=== PATIENT | female | born 1955 | race African-American/Black ===

== ENCOUNTER → 2016-08-30 | Outpatient (CLI) | payer BC | LOC: OD 15:50 | PROVIDERS: ATTEND Nurse Practitioner Psychiatric/Mental Health | DX: R80.9 Proteinuria, unspecified (principal) | CPT/HCPCS: 76770 ==

== ENCOUNTER 2016-09-03 11:41 | Emergency (ER) | payer BC ==
--- NOTE | 2016-09-03 12:48 | ER Document Report ---
ED Blood Pressure Problem - General Chief Complaint: High Blood Pressure Stated Complaint: BLOOD PRESSURE PROBLEMS Time Seen by Provider: 09/03/16 12:30 Notes: The patient is a 61-year-old female, past medical history hypertension, hyperlipidemia, presents from her primary care physician's office after her blood pressure was noted to be 220/140 while in the office today she had a routine visit for follow-up about possible proteinuria. She took her hydrochlorothiazide and atenolol this morning just prior to the visit. She was sent to the emergency room due to elevated blood pressure. She is asymptomatic at this time and her BP is 160's/90's. She denies chest pain, shortness of breath, numbness, tingling, back pain, blurry vision, headache, abdominal pain, nausea, vomiting or difficulty walking. TRAVEL OUTSIDE OF THE [place] IN LAST 30 DAYS: No - Related Data Allergies/Adverse Reactions: No Known Allergies Allergy (Verified 07/18/13 07:50) Home Medications: Current Home Medications Azilsartan Medoxomil [Edarbi] 80 mg PO DAILY 09/03/16 [History] Duloxetine HCl [Cymbalta] 1.5 tab PO TID 09/03/16 [History] Glimepiride [Amaryl 4 mg Tablet] 4 mg PO DAILY 09/03/16 [History] Hydrochlorothiazide 25 mg PO DAILY 09/03/16 [History] Pregabalin [Lyrica 75 mg Capsule] 75 mg PO Q12 09/03/16 [History] Simvastatin 40 mg PO QHS 09/03/16 [History] Tapentadol HCl [Nucynta] 100 mg PO BID 09/03/16 [History] Zolpidem Tartrate [Zolpidem Tartrate ER] 12.5 mg PO QHS 09/03/16 [History] Past Medical History - General Information source: Patient - Social History Smoking Status: Unknown if Ever Smoked Family History: Reviewed & Not Pertinent Patient has suicidal ideation: No Patient has homicidal ideation: No - Past Medical History Cardiac Medical History: Reports: Hx Hypercholesterolemia, Hx Hypertension Endocrine Medical History: Reports: Hx Diabetes Mellitus Type 2 Renal/ Medical History: Denies: Hx Peritoneal Dialysis Past Surgical History: Reports: Hx Vascular Surgery - Immunizations Hx Diphtheria, Pertussis, Tetanus Vaccination: Yes - 2000 Review of Systems - Review of Systems Notes: REVIEW OF SYSTEMS: CONSTITUTIONAL: -fevers, -chills EENT: -eye pain, -difficulty swallowing, -nasal congestion CARDIOVASCULAR:-chest pain, -syncope. RESPIRATORY: -cough, -SOB GASTROINTESTINAL: -abdominal pain, - nausea, -vomiting, -diarrhea GENITOURINARY: -dysuria, -hematuria MUSCULOSKELETAL: -back pain, -neck pain SKIN: -rash or skin lesions. HEMATOLOGIC: -easy bruising or bleeding. LYMPHATIC: -swollen, enlarged glands. NEUROLOGICAL: -altered mental status or loss of consciousness, -headache, - neurologic symptoms PSYCHIATRIC: -anxiety, -depression. ALL OTHER SYSTEMS REVIEWED AND NEGATIVE. Physical Exam - Vital signs Vitals: Temp 97.8 F 09/03/16 12:07 - Notes Notes: PHYSICAL EXAMINATION: GENERAL: Well-appearing, well-nourished and in no acute distress. HEAD: Atraumatic, normocephalic. EYES: Pupils equal round and reactive to light, extraocular movements intact, sclera anicteric, conjunctiva are normal. ENT: nares patent, oropharynx clear without exudates. Moist mucous membranes. NECK: Normal range of motion, supple without lymphadenopathy LUNGS: Breath sounds clear to auscultation bilaterally and equal. No wheezes rales or rhonchi. HEART: Regular rate and rhythm without murmurs ABDOMEN: Soft, nontender, normoactive bowel sounds. No guarding, no rebound. No masses appreciated. EXTREMITIES: Normal range of motion, no pitting or edema. No cyanosis. NEUROLOGICAL: Cranial nerves grossly intact. Normal speech, normal gait. Normal sensory, motor, and reflex exams. PSYCH: Normal mood, normal affect. SKIN: Warm, Dry, normal turgor, no rashes or lesions noted. Course - Re-evaluation Re-evalutation: 09/03/16 12:54: Pt completely asymptomatic at this time. Her blood pressure came down to 160s over 90s after she took her home blood pressure medications. Placed a call to her PMD, Dr. Grove, to discuss if any changes need to be made. Based on ACEP guidelines, asymptomatic hypertension should be treated as an outpatient due to the potential risks of lowering blood pressure too rapidly. Patient and sister understand and will follow up with her primary care physician. 09/03/16 13:[address] Grove about BP readings in ED. she recommends no adjustments at this time. Plan is to have patient referred to nephrology because of difficult to control hypertension. Patient and sister comfortable with plan. - Vital Signs Vital signs: Temp Pulse Resp BP Pulse Ox 97.3 F 72 18 162/96 H 98 09/03/16 13:17 09/03/16 13:17 09/03/16 13:17 09/03/16 13:17 09/03/16 13:17 Discharge - Discharge Clinical Impression: Asymptomatic hypertension Condition: Stable Disposition: HOME, SELF-CARE Additional Instructions: Keep of loss of your blood pressure measurements and follow-up with her primary care physician to see if your blood pressure meds need adjusted. Always take your medications as instructed. HIGH BLOOD PRESSURE REQUIRING TREATMENT: Your blood pressure is high. This is called "hypertension." Today's reading was 169/97 (normal is less than 140/90). Your history and exam suggest that this is not a temporary problem. You need treatment of your blood pressure. If left untreated, high blood pressure greatly increases your risk of heart attack and stroke. Please don't ignore this problem. If you have blood pressure medicine but aren't using it regularly, start taking it again. Some simple things you can do to help are: Get some aerobic exercise for at least 20 minutes on a daily basis. (See your doctor before beginning any new exercise program.) Eat a low-fat diet. Lose excess weight. Avoid salty foods and avoid adding salt to any of the foods you eat. Avoid diet pills, decongestants, "energizing" herbs, and other medicines that elevate blood pressure. There are many different medicines that treat blood pressure. If your medication causes unpleasant side effects, call your doctor. There are others you can try. Treating hypertension is a life-long investment in your health. HYDROCHLOROTHIAZIDE: Hydrochlorothiazide is a diuretic medication. Diuretics are often called "water pills." The medicine flushes excess salt and water from the body. Diuretics are used for fluid retention (such as heart failure, cirrhosis, or lung disease) and for blood pressure control. Often hydrochlorothiazide is combined with other medicines in the same pill. Most patients prefer to take the medicine in the morning. Hydrochlorothiazide makes extra urine, which can be a problem if you take the pill at night. Diuretics make you lose potassium. Sometimes a good diet with plenty of fruit is enough to replace it. Sometimes a potassium supplement is necessary. Or, hydrochlorothiazide may be combined with medicines that prevent potassium loss. We usually recommend a blood potassium test in a few weeks. Contact your doctor if you develop extreme fatigue, muscle weakness, lethargy, confusion, or palpitations. FOLLOW-UP CARE: If you have been referred to a physician for follow-up care, call the physician s office for an appointment as you were instructed or within the next two days. If you experience worsening or a significant change in your symptoms, notify the physician immediately or return to the Emergency Department at any time for re-evaluation.
[2016-09-03 13:25] VITALS: BP 162/96
== END 2016-09-03 13:17 | disposition home or self-care (01) ==
LOC: ER 11:41
DX: I10 Essential (primary) hypertension (principal); Z79.899 Other long term (current) drug therapy; E11.9 Type 2 diabetes mellitus without complications
CPT/HCPCS: 99283

== ENCOUNTER 2018-01-26 15:05 | Emergency (ER) | payer BC ==
--- NOTE | 2018-01-26 18:25 | ER Document Report ---
ED Skin Rash/Insect Bite/Abscs - General Chief Complaint: Skin Sore(s) Stated Complaint: LEFT ELBOW PAIN Time Seen by Provider: 01/26/18 18:19 Information source: Patient Notes: Patient is a 62-year-old female who comes emergency room complaining of an abscess on the back of her left elbow. Patient states it started yesterday as a little pimple she attempted to pop it and today it got much bigger. She says her mother tried to drain it by using herbs. Now it is swollen and warm. Patient denies any known trauma to it knows that it had a pimple type presentation and she attempted to pop it. She also works as a [employer]. He also has a history of hypertension and diabetes. Her diabetes is oral dependent. Currently she states that it is oozing slightly. Denies any fever. TRAVEL OUTSIDE OF THE [place] IN LAST 30 DAYS: No - HPI Patient complains to provider of: Tender/swollen area, Possible insect bite Onset: Yesterday Onset/Duration: Gradual, Constant, Worse Quality of pain: Cramping, Throbbing Severity: Moderate Pain Level: 3 Skin Character: Erythema, Swelling, Tenderness, Thickening, Warm Skin Temperature: Warm Quality of rash: Painful Identify cause: No Exacerbated by: Denies Relieved by: Denies Similar symptoms previously: No Recently seen / treated by doctor: No - Related Data Allergies/Adverse Reactions: No Known Allergies Allergy (Verified 01/26/18 15:07) Past Medical History - General Information source: Patient - Social History Smoking Status: Former Smoker Chew tobacco use (# tins/day): No Smoking Education Provided: No Frequency of alcohol use: Rare Drug Abuse: None Occupation: C[employer] Lives with: Family Family History: Reviewed & Not Pertinent Patient has suicidal ideation: No Patient has homicidal ideation: No - Past Medical History Cardiac Medical History: Reports: Hx Hypercholesterolemia, Hx Hypertension Endocrine Medical History: Reports: Hx Diabetes Mellitus Type 2 Renal/ Medical History: Denies: Hx Peritoneal Dialysis Past Surgical History: Reports: Hx Vascular Surgery - Immunizations Hx Diphtheria, Pertussis, Tetanus Vaccination: Yes - 2000 Review of Systems - Review of Systems Constitutional: No symptoms reported EENT: No symptoms reported Cardiovascular: No symptoms reported Respiratory: No symptoms reported Gastrointestinal: No symptoms reported Genitourinary: No symptoms reported Female Genitourinary: No symptoms reported Musculoskeletal: No symptoms reported Skin: See HPI, Lesions Hematologic/Lymphatic: No symptoms reported Neurological/Psychological: No symptoms reported Physical Exam - Vital signs Vitals: Temp Pulse Resp BP Pulse Ox 98.8 F 79 18 158/78 H 98 01/26/18 15:13 01/26/18 15:13 01/26/18 15:13 01/26/18 15:13 01/26/18 15:13 Interpretation: Hypertensive - Notes Notes: Well-nourished well-developed female no apparent distress - General General appearance: Alert - HEENT Head: Normocephalic, Atraumatic Eyes: Normal - Respiratory Respiratory status: No respiratory distress Chest status: Nontender Breath sounds: Normal. No: Rales, Rhonchi, Stridor, Wheezing Chest palpation: Normal - Cardiovascular Rhythm: Regular Heart sounds: Normal auscultation Murmur: No - Extremities General upper extremity: Tender, Edema, Normal color, Normal strength. No: Normal ROM, Normal temperature General lower extremity: Normal inspection, Nontender, Normal ROM, Normal strength Elbow: Tender, Other - Examination patient's elbow shows her to be moderate amount of erythema noted. There is also an open draining area right at the tip of the elbow. It is only approximately half a centimeter across but it is actively oozing a slight amount of whitish pus. I applied pressure to the area and actually popped a hard firm core out of it. Patient states is very tender to touch. The increased amount of warmth is noted. It extends from the midpoint of the elbow to about 3 inches out on either side. Patient has full range of motion with her arm. Good pulses distally and she got good cap refill in nailbeds of the fingers of the left hand. Forearm: Normal, Nontender Wrist: Normal, Nontender - Neurological Neuro grossly intact: Yes Cognition: Normal Orientation: AAOx4 [place] Coma Scale Eye Opening: Spontaneous [place] Coma Scale Verbal: Oriented [place] Coma Scale Motor: Obeys Commands [place] Coma Scale Total: 15 Speech: Normal Cranial nerves: Normal Course - Re-evaluation Re-evalutation: 01/26/18 18:30 As patient is a [employer] I have informed her that we can try antibiotic therapy at this point. There is nothing for me to incise or drain. The cord that I popped out seems to been the paez behind it. She could use warm moist compresses and applying antibiotic cream to it 3 times a day. I am going to keep her out of work tomorrow since she is a C[employer]IED EX[employer]. I am put her on 2 antibiotics Bactrim and Keflex. She also take Tylenol Motrin for any pain at this time. I have told her she is watched very carefully it is right over the joint space if for any reason she has concerns that is not healing appropriately return to ER for recheck. - Vital Signs Vital signs: Temp Pulse Resp BP Pulse Ox 98.8 F 79 18 158/78 H 98 01/26/18 15:13 01/26/18 15:13 01/26/18 15:13 01/26/18 15:13 01/26/18 15:13 Discharge - Discharge Clinical Impression: Cellulitis of left elbow Condition: Stable Disposition: HOME, SELF-CARE Instructions: Cellulitis ([facility]) Additional Instructions: Home home and rest. Medication as we discussed. And take it all please. Use the warm moist compresses 3 or 4 times a day as we discussed. Do not goes to get in the [facility] anything bathtub while this is has an opening in it. You may take a shower this will not hurt it at all. Should you have any concerns or problems that is not healing appropriately return to ER for recheck. Should you spike a fever and or if get worse return to ER for recheck. Prescriptions: Cephalexin Monohydrate [Keflex 500 mg Capsule] 500 mg PO Q6H 7 Days #28 capsule Fluconazole [Diflucan] 150 mg PO ASDIR #2 tablet Sulfamethoxazole/Trimethoprim [Bactrim Ds Tablet] 1 each PO BID #20 tablet Forms: Return to Work
[2018-01-26 19:09] VITALS: BP 154/87
== END 2018-01-26 18:50 | disposition home or self-care (01) ==
LOC: ER 15:05
DX: L03.114 Cellulitis of left upper limb (principal); E78.00 Pure hypercholesterolemia, unspecified; I10 Essential (primary) hypertension; E11.9 Type 2 diabetes mellitus without complications; Z79.84 Long term (current) use of oral hypoglycemic drugs
CPT/HCPCS: 99283

== ENCOUNTER → 2019-03-26 | Outpatient (CLI) | payer BC | LOC: OD 15:26 | PROVIDERS: ATTEND Internal Medicine Gastroenterology | DX: B19.20 Unspecified viral hepatitis C without hepatic coma (principal) | CPT/HCPCS: 36415; 87522 ==

== ENCOUNTER → 2019-11-05 | Outpatient (CLI) | payer BC ==
--- NOTE | 2019-11-06 10:59 | RADIOLOGY REPORT (SQ) ---
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 Coronal T2/ HASTE imaging. LIMITATIONS: None. FINDINGS: VISUALIZED UPPER ABDOMEN: Limited evaluation. No acute or suspicious findings suggested. SEGMENTATION: No transitional anatomy. The lowest well-developed disc space is labeled L5-S1. ALIGNMENT: Slight anterolisthesis L4 relative to L5. VERTEBRAE: Intact. BONE MARROW: Normal. No marrow replacement or reactive changes. DISC SIGNAL: Desiccation multiple levels. POSTERIOR ELEMENTS: Generally intact. No pars defect evident. HARDWARE: None in the spine. CORD AND CONUS: Normal in size and signal intensity. Conus at the appropriate level. SOFT TISSUES: No aortic aneurysm seen. No bulky retroperitoneal adenopathy or mass. No paraspinal mas s or fluid. L1-L2: No significant spinal stenosis or exit foraminal stenosis. L2-L3: Moderate spinal stenosis and lateral recess stenosis due to disc bulge and facet arthropathy. L3-L4: Mild spinal stenosis due to disc bulge and facet arthropathy. L4-L5: Disc bulge and facet arthropathy. No significant spinal stenosis. L5-S1: Disc bulge and facet arthropathy. No significant spinal stenosis. LOWER THORACIC: Incompletely imaged. No stenosis seen. SACRUM: Visualized upper sacrum intact. OTHER: No other significant findings. IMPRESSION: Spondylosis and facet arthropathy. Moderate spinal stenosis L2-3. TECHNICAL DOCUMENTATION: JOB ID: [id number] [employer] ([employer])- All Rights Reserved Reading location - IP/workstation name: [email or web address]
== END ==
LOC: RAD 18:10
PROVIDERS: ATTEND Nurse Practitioner Family
DX: M51.16 Intervertebral disc disorders with radiculopathy, lumbar region (principal); M48.061 Spinal stenosis, lumbar region without neurogenic claudication
CPT/HCPCS: 72148